=== PATIENT | female | born 1995 | race Caucasian/White ===

== ENCOUNTER 2016-10-17 10:40 | Outpatient (CLI) | payer OTHER ==
[~2016-10-17] VITALS: Ht 157.5 cm; Wt 60.5 kg
[2016-10-17 10:59] VITALS: BP 100/56; PULSE 79; RESP 16; Ht 157.5 cm; Wt 60.5 kg
[2016-10-17] MEDS ORDERED: PRENAT PO (11:00)
[2016-10-17 11:05] LABS: URINE BLOOD (Dip) POC Trace-intact (NEGATIVE)
[2016-10-17 11:42] LABS: ADD UMIC YES; URINE BILIRUBIN (Dip) NEGATIVE (NEGATIVE); URINE BLOOD (Dip) TRACE (NEGATIVE); URINE COLOR LT. YELLOW (YELLOW); URINE GLUCOSE (Dip) NEGATIVE (NEGATIVE); URINE KETONES (Dip) NEGATIVE (NEGATIVE); URINE LEUKOCYTE ESTERASE (Dip) TRACE (NEGATIVE); URINE NITRITE (Dip) NEGATIVE (NEGATIVE); URINE TOTAL PROTEIN (Dip) NEGATIVE (NEGATIVE); URINE UROBILINOGEN (Dip) 0.2 E.U./dL (0.1-1.0)
[2016-10-17 12:22] LABS: URINE RBCS 0-2 /HPF (0)
--- NOTE | 2016-10-17 12:24 | QN ---
Documentation Comment 21-year-old with IUP at 26 and 3 days here with complaint of decreased movement and discomfort with urination. patient denies any other symptoms. She denies any fever or chills. She denies any leaking of fluid, vaginal bleeding. She denies any complication during . Physical examination: General appearance, alert and oriented 4. Patient does not appear to be in any acute distress. Abdomen: Soft, gravid, Fundal height consistent with gestational age, no tenderness, no CVA tenderness There is mild suprapubic tenderness Extremities: No calf tenderness, no click no edema PROCEDURE: US OB. CLINICAL INDICATION: Low SIA , pain TECHNIQUE: Transabdominal views of the pelvis are available for review. COMPARISON: No prior studies are available for comparison. FINDINGS: There is a single intrauterine gestation in a vertex position. The heart rate is noted at 163 bpm. The placenta is anterior. The SIA measures 15.2 cm. RPTAT: AA IMPRESSION: Normal SIA. NST: Category 1 BPP: UA: Negative Assessment: IUP at 26 and 3 days Decreased movement testing , NST appropraite for GA, SIA adequate I had ordered BPP verbally to WANDER echeverria, order was placed by RN as SIA. Patient was reported verbally to me that has 8/8 BPP and discharged home by RN, . although this test was not performed by radiology. After reviewing the chart and checking with radiology noted that no BPP was not ordered and verbal report by RN in fact was not correct. Advised immediately to contact the patient to RT triage back to perform BPP GUSTAVO. RN agrred to call immediately. UA negative for UTI. ERIC CABRAL MD October 17, 2016 12:24
--- NOTE | 2016-10-17 12:42 | RADRPT ---
PROCEDURE: US OB. CLINICAL INDICATION: Low SIA , pain TECHNIQUE: Transabdominal views of the pelvis are available for review. COMPARISON: No prior studies are available for comparison. FINDINGS: There is a single intrauterine gestation in a vertex position. The heart rate is noted at 163 bpm. The placenta is anterior. The SIA measures 15.2 cm. RPTAT: AA IMPRESSION: Normal SIA. .Desmond Stuart MD, MD Date Time Electronically viewed and signed by .Desmond Stuart MD, on 10/17/2016 12:42 .S/
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
== END 2016-10-17 14:25 | disposition home or self-care (01) ==
LOC: OBT 10:40 → L-D 10:40 → OBT 14:25
PROVIDERS: ATTEND Obstetrics & Gynecology
DX: O36.8120 Decreased fetal movements, second trimester, not applicable or unspecified (principal); Z3A.26 26 weeks gestation of pregnancy
CPT/HCPCS: 76815; 81001; 81003; Z7500; G0463

== ENCOUNTER 2016-10-17 22:39 | Outpatient (CLI) | payer OTHER ==
[~2016-10-17] VITALS: Ht 157.5 cm; Wt 59.1 kg
[~2016-10-17 22:39] MED LIST: PRENAT PO
[2016-10-17 22:55] VITALS: BP 105/66; PULSE 106; RESP 18
[2016-10-17 23:20] VITALS: Ht 157.5 cm; Wt 59.1 kg
--- NOTE | 2016-10-18 00:07 | RADRPT ---
PROCEDURE: Biophysical profile. CLINICAL INDICATION: Pelvic pain. TECHNIQUE: Multiple sonographic images of the pelvis were obtained with transabdominal technique. COMPARISON: 10/17/2016. FINDINGS: There is a single living intrauterine gestation with the fetus in a breech position. The placenta i s anterior in location, grade 1. heart tones of 168 beats per minute are identified. There is normal amniotic fluid volume with an SIA of 16.6 cm. breathing movements = 2 Gross body movements = 2 tone = 2 Qualitative AFV = 2 IMPRESSION: Biophysical profile 8 out of 8. .Tank Butler MD, Date Time Electronically viewed and signed by .Tank Butler MD, on 10/18/2016 00:07 .T/
[2016-10-18 00:27] LABS: ADD UMIC NO; URINE BILIRUBIN (Dip) NEGATIVE (NEGATIVE); URINE BLOOD (Dip) NEGATIVE (NEGATIVE); URINE COLOR LT. YELLOW (YELLOW); URINE GLUCOSE (Dip) NEGATIVE (NEGATIVE); URINE KETONES (Dip) NEGATIVE (NEGATIVE); URINE LEUKOCYTE ESTERASE (Dip) NEGATIVE (NEGATIVE); URINE NITRITE (Dip) NEGATIVE (NEGATIVE); URINE TOTAL PROTEIN (Dip) NEGATIVE (NEGATIVE); URINE UROBILINOGEN (Dip) 0.2 E.U./dL (0.1-1.0)
--- NOTE | 2016-10-18 00:38 | PN ---
Date/Time of Note Date/Time of Note DATE: 10/18/16 TIME: 00:29 OB Subjective Subjective Subjective sent for BPP by am laborist who called pt to come back for the test c/o left side back pain pain request vitamin OB Objective Objective Objective U/A neg CVA neg for tenderness OB Assessment/Plan Other Assessment: IUP 26w3d back pain Other plan: d/s home with with routine instructions RTH prVITO Fernández MD October 18, 2016 00:38
--- NOTE | 2016-10-18 00:58 | TRIAGE ---
OB Triage Datetime Report Generated by CPN: 10/18/2016 00:57 Datetime: 10/18/2016 00:34 Frequency: N/A Monitor Mode: External Resting Tone [place]: Relaxed FHR Baseline Rate: 145 Monitor Mode: External US FHR Baseline Changes: No Baseline Change Variability: Moderate 6-25 bpm Decelerations: None Category: Category I Datetime: 10/18/2016 00:15 Frequency: N/A Monitor Mode: External Resting Tone [place]: Relaxed FHR Baseline Rate: 145 Monitor Mode: External US FHR Baseline Changes: No Baseline Change Variability: Moderate 6-25 bpm Accelerations: 15X15 Decelerations: None Category: Category I Datetime: 10/17/2016 23:15 Frequency: N/A Monitor Mode: External Resting Tone [place]: Relaxed FHR Baseline Rate: 145 Monitor Mode: External US FHR Baseline Changes: No Baseline Change Variability: Moderate 6-25 bpm Accelerations: 15X15 Decelerations: None Category: Category I Datetime: 10/17/2016 23:06 Time of Arrival: 10/17/2016 22:37 EGA: 26.3 Arrived By: Ambulatory Arrived From: Home Chief Complaint: BPP; pain and burning with urination Movement: Decreased Contractions: Denies/Absent Rupture of Membranes: Denies Vaginal Bleeding: None Vaginal Discharge: Denies Recent Sexual Intercouse: Denies Abdominal Trauma: Not Applicable Patient Complaints: Pain on Urination Additional Patient Complaints: Day shift RN called pt to return to hospital for BPP. Time Provider Notified: 10/17/2016 23:06 Provider Notified: MD TANG Initial Plan: NST, BPP, UA Datetime: 10/17/2016 22:55 Assessment Type: Triage Level of Consciousness: Fully Conscious DTR's/Clonus: DTRs 2+; No Clonus Headache: Denies Blurred Vision: No Respiratory Effort: Unlabored; Regular Rhythm; Equal Expansion Breath Sounds, Left: Clear and Equal Breath Sounds, Right: Clear and Equal Nausea/Vomiting: Denies RUQ Epigastric Pain: Denies Facial Edema: None History of Falling: (0) No Secondary Diagnosis: (0) No Ambulatory Aid: (0) Bedrest/Nurse Assist IV Therapy: (0) No Gait: (0) Normal/Bedrest/Immobile Mental Status: (0) Oriented to Own Ability Fall Score: 0 Fall Risk Score Definition: No Risk: No action required Datetime: 10/17/2016 22:50 Stage of : OB Triage Datetime: 10/17/2016 10:44 Initial Plan: nst, ua, BPP/ SIA
== END 2016-10-18 00:42 | disposition home or self-care (01) ==
LOC: OBT 22:39 → L-D 22:39 → OBT 10-18 00:42
PROVIDERS: ATTEND Obstetrics & Gynecology
DX: O26.892 Other specified pregnancy related conditions, second trimester (principal); M54.9 Dorsalgia, unspecified; Z3A.26 26 weeks gestation of pregnancy
CPT/HCPCS: 76818; 81003; Z7500; G0463